=== PATIENT | male | born 1995 | race African-American/Black ===

== ENCOUNTER 2020-10-30 04:54 | Emergency (ER) | payer OTHER ==
[~2020-10-30] VITALS: Ht 177.8 cm; Wt 79.5 kg
[2020-10-30] MEDS ORDERED: IBUPROFEN 800 MG TAB PO ONE (07:20)
[2020-10-30 08:19] LABS: RSV AMPLIFICATION NEGATIVE (NEGATIVE)
[2020-10-30] MEDS ORDERED: ACETAMINOPHEN 500 MG TAB PO ONE (10:45)
[2020-10-30] MEDS ORDERED: IBUP80TA PO (10:49)
[2020-10-30] MEDS ORDERED: ACET-897 PO (10:49)
[2020-10-30 10:59] VITALS: BP 128/66
== END 2020-10-30 11:01 | disposition home or self-care (01) ==
LOC: M ED 04:54
DX: U07.1 COVID-19 (principal)

== ENCOUNTER 2022-05-21 01:41 | Inpatient (IN) | payer OTHER ==
[~2022-05-21] VITALS: Ht 175.3 cm; Wt 82.9 kg
[~2022-05-21 01:41] MED LIST: ACET-897 PO; IBUP80TA PO
[2022-05-21] MEDS ORDERED: NS 1,000 ML IV ONE (01:50)
[2022-05-21 02:00] LABS: BASO % 0.4 % (0.0-1.0); HEMATOCRIT 45.3 % (42.0-52.0); HEMOGLOBIN 15.3 g/dl (13.5-17.5); LYMPH # 1.4 10^3/uL (1.5-5.0); LYMPH % 20.4 % (24.0-44.0); MEAN CORPUSCULAR HGB CONC 33.8 g/dl (32.0-36.5); MEAN CORPUSCULAR VOLUME 91.7 fl (80.0-96.0); MONO # 0.6 10^3/uL (0.0-0.8); MONO % 8.2 % (2.0-8.0); NEUTROPHILS # 4.9 10^3/uL (1.5-8.5); NEUTROPHILS % 70.9 % (36.0-66.0); PLATELET COUNT, AUTOMATED 334 10^3/uL (150-450); RED BLOOD COUNT 4.94 10^6/uL (4.30-6.10); WHITE BLOOD COUNT 6.9 10^3/uL (4.0-10.0)
[2022-05-21] MEDS ORDERED: SODIUM BICARBONATE 8.4% INJ 50ML SYRINGE IV STA (02:24)
[2022-05-21 02:28] LABS: ETHYL ALCOHOL (ETHANOL) 0.063 % (0.000-0.010)
[2022-05-21 02:30] LABS: CPK CREATINE PHOSPHOKINASE 142 U/L (46-171); SALICYLATE LEVEL 20.3 MG/DL (<30)
[2022-05-21 02:57] LABS: ACETAMINOPHEN LEVEL 65.9 UG/ML (10.0-20.0); ALBUMIN 4.9 G/DL (3.2-5.2); ALKALINE PHOSPHATASE 53 U/L (46-116); ALT/SGPT 16 U/L (7.0-40); AST/SGOT 17 U/L (<34); BILIRUBIN,DIRECT 0.1 MG/DL (<0.4); BILIRUBIN,TOTAL 0.3 MG/DL (0.3-1.2); BLOOD UREA NITROGEN 9 MG/DL (9-23); CALCIUM LEVEL 9.3 MG/DL (8.5-10.1); CARBON DIOXIDE LEVEL 23 MMOL/L (20-31); CHLORIDE LEVEL 102 MMOL/L (98-107); CREATININE FOR GFR 0.81 MG/DL (0.70-1.30); GLOMERULAR FILTRATION RATE > 60.0 (>60); GLUCOSE, FASTING 115 MG/DL (60-100); POTASSIUM SERUM 4.2 MMOL/L (3.5-5.1); SODIUM LEVEL 139 MMOL/L (136-145)
[2022-05-21 03:41] LABS: AMPHETAMINES LEVEL URINE NEGATIVE (NEGATIVE); BARBITURATES URINE NEGATIVE (NEGATIVE); BENZODIAZEPINES URINE NEGATIVE (NEGATIVE); COCAINE METABOLITE URINE NEGATIVE (NEGATIVE); METHADONE URINE NEGATIVE (NEGATIVE); OPIATES URINE NEGATIVE (NEGATIVE); PHENCYCLIDINE URINE NEGATIVE (NEGATIVE)
[2022-05-21 03:42] LABS: CANNABINOIDS URINE NEGATIVE (NEGATIVE)
[2022-05-21 04:37] LABS: TOTAL PROTEIN 8.5 G/DL (5.7-8.2)
[2022-05-21 04:44] LABS: ACETAMINOPHEN LEVEL 52.2 UG/ML (10.0-20.0); SALICYLATE LEVEL 14.7 MG/DL (<30)
[2022-05-21 04:53] LABS: RSV AMPLIFICATION NEGATIVE (NEGATIVE)
[2022-05-21] MEDS ORDERED: VITMTA PO (08:19)
[2022-05-21] MEDS ORDERED: MAGN400T2 PO (08:19)
[2022-05-21] MEDS ORDERED: HOME MED LIST COMPLETE! XX SCH (08:20)
[2022-05-21] MEDS ORDERED: ACETAMINOPHEN 500 MG TAB PO PRN (16:45)
[2022-05-21] MEDS ORDERED: diphenhydrAMINE 25MG CAP PO PRN (17:55)
[2022-05-21] MEDS ORDERED: LORazepam 1 MG TAB PO PRN (17:55)
[2022-05-21] MEDS ORDERED: traZODone 50 MG TAB PO PRN (17:55)
[2022-05-21] MEDS ORDERED: MAALOX 30 ML SUSP *UDC PO PRN (17:55)
[2022-05-21] MEDS ORDERED: MOM 30ML SUSPENSION UDC PO PRN (17:55)
[2022-05-21] MEDS ORDERED: IBUPROFEN 400MG TAB PO PRN (17:55)
[2022-05-21] MEDS ORDERED: OLANZapine ORAL DISINTEGRATING TAB 5MG PO PRN (17:55)
[2022-05-21 19:03] VITALS: BP 129/79
[2022-05-22 06:29] VITALS: BP 120/64
[2022-05-22] MEDS ORDERED: MAGNESIUM OXIDE 400MG TAB (MAG-OX) PO SCH (09:00)
[2022-05-22] MEDS ORDERED: MULTIVITAMINS/MINERALS THERAP 1 TAB PO SCH (09:00)
[2022-05-22 16:37] VITALS: BP 118/62
[2022-05-22] MEDS: MIRTAZAPINE 7.5MG PER 1/2 TABLET PO SCH (22:36)
[2022-05-23 06:38] VITALS: BP 111/61
[2022-05-23 06:55] LABS: CHOLESTEROL RISK RATIO 2.5 (<5); LDL CHOLESTEROL 73.2 MG/DL (<100)
[2022-05-23 18:53] VITALS: BP 117/77
[2022-05-23] MEDS: MIRTAZAPINE 7.5MG PER 1/2 TABLET PO SCH (20:05)
[2022-05-24 06:26] VITALS: BP 104/67
[2022-05-24] MEDS ORDERED: MIRT-10 PO (09:23)
== END 2022-05-24 12:37 | disposition home or self-care (01) | DRG 881 ==
LOC: M ED 01:41 → M ED INP 18:08 → M PSY 18:46
PROVIDERS: ADMIT Student in an Organized Health Care Education/Training Program; ATTEND Student in an Organized Health Care Education/Training Program
DX: F43.21 Adjustment disorder with depressed mood (principal); R45.851 Suicidal ideations; F17.210 Nicotine dependence, cigarettes, uncomplicated; G47.00 Insomnia, unspecified; M54.9 Dorsalgia, unspecified; G89.29 Other chronic pain; Z91.51 Personal history of suicidal behavior; Z56.4 Discord with boss and workmates; Z63.0 Problems in relationship with spouse or partner; Z20.822 Contact with and (suspected) exposure to COVID-19; Z79.899 Other long term (current) drug therapy

== ENCOUNTER 2022-10-31 23:44 | Emergency (ER) | payer OTHER ==
[~2022-10-31] VITALS: Ht 177.8 cm; Wt 78.6 kg
[~2022-10-31 23:44] MED LIST changes: +MAGN400T2 PO; +MIRT-10 PO; +VITMTA PO
[2022-10-31] MEDS ORDERED: TRAZ-252 (23:50)
[2022-11-01] MEDS ORDERED: OXYMETAZOLINE 0.05% NASAL SPRAY (AFRIN) ONE (06:15)
[2022-11-01 07:44] VITALS: BP 120/77; TEMP 97.2; O2SAT 100
== END 2022-11-01 07:50 | disposition home or self-care (01) ==
LOC: M ED 23:44
DX: S02.2XXA Fracture of nasal bones, initial encounter for closed fracture (principal); W21.07XA Struck by softball, initial encounter

== ENCOUNTER 2022-11-06 06:31 | Day surgery (SDC) | payer OTHER ==
[~2022-11-06] VITALS: Ht 177.8 cm; Wt 78.5 kg
[~2022-11-06 06:31] MED LIST changes: +TRAZ-252
[2022-11-06] MEDS ORDERED: LIDOCAINE W/EPINEPHRINE 1% 20ML VIAL As Ordered ONE (07:14)
[2022-11-06] MEDS ORDERED: COCAINE 4% 4ML NASAL SOLUTION BTL As Ordered ONE (07:14)
[2022-11-06] MEDS ORDERED: ROCURONIUM BROMIDE 50MG/5ML VIAL As Ordered ONE (08:20)
[2022-11-06] MEDS ORDERED: MIDAZOLAM INJ 2MG/2ML VIAL As Ordered ONE (08:20)
[2022-11-06] MEDS ORDERED: fentaNYL 100 MCG/2 ML INJECTION As Ordered ONE (08:20)
[2022-11-06] MEDS ORDERED: propofoL 200 MG/20 ML VIAL As Ordered ONE (08:20)
[2022-11-06] MEDS ORDERED: LIDOCAINE 2% 100MG/5ML SDV (FOR ANES.) As Ordered ONE (08:20)
[2022-11-06] MEDS ORDERED: ONDANSETRON 4MG 2ML VIAL As Ordered ONE (08:20)
[2022-11-06] MEDS ORDERED: SUGAMMADEX SODIUM 500 MG/5 ML VIAL (BRIDION) As Ordered ONE (08:21)
[2022-11-06] MEDS ORDERED: SUCCINYLCHOLINE 100MG/5ML SYRINGE As Ordered ONE (08:24)
[2022-11-06] MEDS ORDERED: oxyCODONE 5MG TAB PO PRN (08:40)
[2022-11-06] MEDS ORDERED: ONDANSETRON 4MG 2ML VIAL IV PRN (08:40)
[2022-11-06] MEDS ORDERED: METOCLOPRAMIDE INJ 10MG/2ML VIAL IV PRN (08:40)
[2022-11-06] MEDS ORDERED: LR 1,000 ML IV SCH ×2 (08:40→09:30)
[2022-11-06] MEDS ORDERED: fentaNYL 100 MCG/2 ML INJECTION IV PRN (08:40)
[2022-11-06] MEDS ORDERED: ACETAMINOPHEN 500 MG TAB PO PRN (09:30)
[2022-11-06 09:46] VITALS: BP 148/82; TEMP 97.5; O2SAT 100
== END 2022-11-06 09:49 | disposition home or self-care (01) ==
LOC: M SDC 06:31
PROVIDERS: ATTEND Otolaryngology
DX: S02.2XXA Fracture of nasal bones, initial encounter for closed fracture (principal); X58.XXXA Exposure to other specified factors, initial encounter; Y92.89 Other specified places as the place of occurrence of the external cause; Y93.89 Activity, other specified; Y99.8 Other external cause status; F41.9 Anxiety disorder, unspecified; F32.A Depression, unspecified
CPT/HCPCS: 21320; C9143; J0330; J1100; J2250; J2405; J3010